=== PATIENT | female | born 1960 | race Caucasian/White ===

== ENCOUNTER 2019-10-25 09:00 | Outpatient (CLI) | payer BC, SELFPAY ==
--- NOTE | ~2019-10-25 | MM_ITS ---
EXAMINATION: MM screening [facility] BI w karla HISTORY: Screening mammogram TECHNIQUE: Craniocaudal and mediolateral oblique 3-D tomosynthesis images were obtained and synthetic 2-D images were generated. CAD analysis was submitted and interpreted. COMPARISON: 01/31/2017, 03/13/2015, 02/25/2014 BREAST PARENCHYMAL COMPOSITION: The breasts are heterogeneously dense, which may obscure small masses . FINDINGS: There is no evidence of suspicious mass, calcification, or architectural distortion to sugg est malignancy in either breast. There has been no suspicious interval change. IMPRESSION: 1. No mammographic evidence of malignancy. 2. Recommend routine screening mammography in one year. BI-RADS Category 1: Negative Reviewed, dictated and finalized at location A.
== END 2019-10-25 09:01 | disposition home or self-care (01) ==
LOC: ANHIMG 09:06
PROVIDERS: PCP Student in an Organized Health Care Education/Training Program; Visit Provider Student in an Organized Health Care Education/Training Program
DX: Z12.31 Encounter for screening mammogram for malignant neoplasm of breast (principal)
CPT/HCPCS: 77063; 77067

== ENCOUNTER 2020-08-29 11:32 | Emergency (ER) | payer BC, SELFPAY ==
[2020-08-29 11:40] VITALS: BP 116/58; PULSE 55; RESP 16; TEMP 36.6; O2SAT 100
--- NOTE | 2020-08-29 12:38 | ED.URI ---
HPI - URI/Sore Throat General Chief Complaint: Upper Respiratory Infection Stated Complaint: sinus infection Time Seen by Provider: 08/29/20 12:05 Source: patient, RN notes reviewed and old records reviewed Mode of arrival: ambulatory Limitations: no limitations History of Present Illness HPI Narrative: 59 year old female presents to [facility] care with complaints of sinus congestion, sinus pressure to face, frontal headache, sinus drainage of yellow to green with blood tinged mucous, and cough. Patient states that she has taken Advil cold and sinus, Zyrtec, NyQuil and Neti pot with no improvement in her symptoms. 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 Patient denies any shortness of breath, no sore throat or ear pain. Patient states that her cough is non-productive at this time. Patient reports that she has had her COVID immunizations. MD elicited complaint: cough, rhinorrhea, nasal congestion and sinus pain Pertinent past history: sinusitis Onset (ago): day(s) (4) Consistency: progressively worsening Severity: similar to previous episodes Pain scale (0-10): 7 Description of mucous: yellow, green and bloody Able to tolerate fluids by mouth: Yes Relieving factors: nothing Associated symptoms: headache, rhinorrhea, nasal congestion and cough Treatments prior to arrival: cold medicine and other (Nyquil, zyrtec) Related Data Allergies Allergy/AdvReac Type Severity Reaction Status Date / Time Sulfa (Sulfonamide Allergy Unknown yeast/bladder Verified 03/24/19 09:37 Antibiotics) infections Quinolones Allergy Rash Verified 03/24/19 09:37 Review of Systems Review of Systems: Narrative: CONSTITUTIONAL: Denies fever, chills, or sweats. EYES: Denies visual changes, redness, or discharge. ENT: Positive for rhinorrhea, congestion,no sore throat, or otalgia. CARDIOVASCULAR: Denies chest pain, palpitations, or edema. RESPIRATORY: Positive for cough no dyspnea. GASTROINTESTINAL: Denies abdominal pain, nausea, vomiting, or diarrhea. GENITOURINARY: Denies dysuria or hematuria. SKIN: Denies rash or itching. MUSCULOSKELETAL: Denies back pain, joint pain, or myalgia. NEUROLOGIC: Positive for frontal headache,no numbness, or weakness. PSYCHIATRIC: Denies anxiety or depression. All systems reviewed & are unremarkable except as noted in HPI and below PMFSH Past Medical History Medical History (Updated 09/03/20 @ 12:56 by Deyanira Corea NP) Fracture of right hand Mek toxicity Sinusitis Surgical History Surgical History (Updated 09/03/20 @ 12:56 by Deyanira Corea NP) History of hysterectomy Hx of appendectomy Family History Family History (Updated 09/03/20 @ 12:58 by Deyanira Corea NP) Mother Hypertension Grandparent Diabetes mellitus Heart disease Pancreatic cancer Social History Social History (Updated 09/03/20 @ 12:57 by Deyanira Corea NP) Smoking status: Never smoker Alcohol intake: current Alcohol use details: social Substance use: never Living arrangements: alone Gender identity (if verbalized by the patient): Female Comments At time of signature, agree with nursing past medical, surgical, social and family history. There is no relevant family history pertinent to the presenting complaint Exam Narrative: Exam Narrative: GENERAL: Well-appearing, well-nourished, and in no acute distress. HEAD: Normocephalic, atraumatic. EYES: PERRLA and EOMI. ENT: Nares red with turbinates swollen with rhinorrhea and blood streaks. facial pressure to cheeks and frontal headache. Mucous membranes moist.TM;s normal with dull light reflex, throat red with no exudates or lesions, no tonsil enlargement, post nasal drainage. NECK: Supple. no adenopathy CHEST: Clear to auscultation. No respiratory distress.SAO2 100% on room air HEART: Regular rate and rhythm. No murmur heard. Normal peripheral pulses. ABDOMEN: Soft, nontender, nondistended
== END 2020-08-29 12:56 | disposition home or self-care (01) ==
PROVIDERS: Emergency Provider Registered Nurse; PCP Student in an Organized Health Care Education/Training Program
DX: J32.9 Chronic sinusitis, unspecified (principal)
CPT/HCPCS: 99213; G0463

== ENCOUNTER 2021-08-02 07:55 | Outpatient (CLI) | payer BC, SELFPAY ==
--- NOTE | ~2021-08-02 | DEXA_ITS ---
Bone Density Report Name: ABDIAZIZ MEIER Age: 60 Sex: Female Ethnicity: White Date of : 1960 Indication: postmenopausal; screening for osteoporosis; height loss; hysterectomy; Referring Provider: MARKOS, MARIBEL Study: Bone densitometry was performed. Exam Date: August 02, 2021 Accession number: [id number] Bone Density: Region BMD T-score Z-score Classification AP Spine(L1-L4) 0.840 -1.9 -0.6 Osteopenia Femoral Neck (Left) 0.688 -1.4 -0.2 Osteopenia Total Hip (Left) 0.782 -1.3 -0.4 Osteopenia Femoral Neck (Right) 0.644 -1.8 -0.6 Osteopenia Total Hip (Right) 0.808 -1.1 -0.2 Osteopenia Total Hip Mean 0.795 -1.2 -0.3 Osteopenia World Health Organization criteria for BMD impression classify patients as: Normal (T-score at or above -1.0), Osteopenia (T-score between -1.0 and -2.5), or Osteoporosis (T-score at or below -2.5). 10-year Fracture Risk(1): Major Osteoporotic Fracture 8.3% Hip Fracture 0.9% Reported Risk Factors: [place] (), Neck BMD=0.644, BMI=23.5 (1) FRAX(R) Version 3.08. Fracture probability calculated for an untreated patient. Fracture probability may be lower if the patient has received treatment. Clinical Information Provided by Patient: Has used the following medications: Vitamin D, Calcium Has the following medical conditions: Hysterectomy Patient maximum height was 72 Menopause Age: 39 Drinks caffeinated beverages Onset of menses at age 15 Number of children 0 Impression: The patient has low bone mass, based on the Total Spine T-score. The patient has an estimated ten-year risk of hip fracture of 0.9% and an estimated ten-year risk of major fracture of 8.3%, based on the WHO FRAX algorithm. Discussion: BONE DENSITY IS LOW AT ONE OR MORE SKELETAL SITES. This patient's lowest T-score is low at one or more skeletal sites. It meets the World Health Organization's (WHO) criteria for ?low bone mass? (T-score between -1.0 and -2.5). The patient's 10-year risk of fracture as calculated by FRAX is less than the threshold where pharmacological therapy is recommended by the National Osteoporosis Foundation (NOF). However, all treatment decisions require clinical judgment and consideration of individual patient factors, including patient preferences, comorbidities, previous drug use, risk factors not captured in the FRAX model (e.g., frailty, falls, vitamin D deficiency, increased bone turnover, interval significant decline in bone density) and possible under or overestimation of fracture risk by FRAX. The patient should follow a healthful lifestyle (good nutrition with adequate calcium and vitamin D, and appropriate weight-bearing exercise). Follow-Up: Consider repeating this study in 2 to 3 years to reassess this patient's status, or sooner if there is s
== END 2021-08-02 07:56 | disposition home or self-care (01) ==
PROVIDERS: PCP Student in an Organized Health Care Education/Training Program; Visit Provider Student in an Organized Health Care Education/Training Program
DX: Z78.0 Asymptomatic menopausal state (principal); M85.88 Other specified disorders of bone density and structure, other site; M85.852 Other specified disorders of bone density and structure, left thigh; M85.851 Other specified disorders of bone density and structure, right thigh
CPT/HCPCS: 77080

== ENCOUNTER 2021-09-09 07:54 | Outpatient (CLI) | payer BC, SELFPAY ==
--- NOTE | ~2021-09-09 | MM_ITS ---
EXAMINATION: MM screening [facility] BI w karla HISTORY: Screening mammogram TECHNIQUE: Craniocaudal and mediolateral oblique 3-D tomosynthesis images were obtained and synthetic 2-D images were generated. CAD analysis was submitted and interpreted. COMPARISON: 10/25/2019, 01/31/2017 BREAST PARENCHYMAL COMPOSITION: The breasts are heterogeneously dense, which may obscure small masses . FINDINGS: RIGHT BREAST: There is no suspicious mass, calcification, or architectural distortion to suggest patricia gnancy. There has been no significant interval change. LEFT BREAST: An asymmetry is present in the middle third of inner breast 6 cm from the nipple on the craniocaudal view. IMPRESSION: 1. Left breast asymmetry on the craniocaudal view. 2. Additional mammographic views and possible breast ultrasound are recommended. BI-RADS Category 0: Incomplete: Needs additional imaging evaluation. Reviewed, dictated and finalized at location A. IMPRESSION: 1. Left breast asymmetry on the craniocaudal view. 2. Additional mammographic views and possible breast ultrasound are recommended . BI-RADS Category 0: Incomplete: Needs additional imaging evaluation.
== END 2021-09-09 07:55 | disposition home or self-care (01) ==
PROVIDERS: PCP Student in an Organized Health Care Education/Training Program; Visit Provider Student in an Organized Health Care Education/Training Program
DX: Z12.31 Encounter for screening mammogram for malignant neoplasm of breast (principal); R92.8 Other abnormal and inconclusive findings on diagnostic imaging of breast
CPT/HCPCS: 77063; 77067

== ENCOUNTER 2021-09-28 12:05 | Outpatient (CLI) | payer BC, SELFPAY ==
--- NOTE | ~2021-09-28 | MMUS_ITS ---
EXAMINATION: MM diagnostic [facility] LT w karla, US breast LT limited HISTORY: Left breast asymmetry TECHNIQUE: Additional 3-D tomosynthesis images of the left breast were performed and synthetic 2-D im ages were generated. CAD analysis was submitted and interpreted. High resolution Limited left breast ultrasound was performed. COMPARISON: Comparison to multiple prior studies sequentially, with oldest reviewed study dated 09/2012. BREAST PARENCHYMAL COMPOSITION: The breasts are heterogenously dense, which may obscure small masses FINDINGS: MAMMOGRAPHIC FINDINGS: There are no suspicious masses, calcifications or architectural distortion in the left breast to sugg est malignancy. ULTRASOUND: Limited left breast ultrasound: Normal heterogeneous echotexture without focal mass. IMPRESSION: 1. No evidence for malignancy in the left breast. 2. Routine yearly screening mammogram and regular clinical breast examination are recommended. BI-RADS Category 1: Negative Reviewed, dictated and finalized at location A. IMPRESSION: 1. No evidence for malignancy in the left breast. 2. Routine yearly screening mammogram and regular clinical breast examination a re recommended. BI-RADS Category 1: Negative
== END 2021-09-28 12:06 | disposition home or self-care (01) ==
PROVIDERS: PCP Student in an Organized Health Care Education/Training Program; Visit Provider Student in an Organized Health Care Education/Training Program
DX: R92.8 Other abnormal and inconclusive findings on diagnostic imaging of breast (principal)
CPT/HCPCS: 76642; 77061; 77065; G0279

== ENCOUNTER 2022-10-07 00:52 | Day surgery (SDC) | payer BC, SELFPAY ==
[2022-09-28 10:45] VITALS: BMI 22.4
[2022-10-07 06:18] VITALS: BP 109/73; PULSE 45; RESP 16; TEMP 36.8; O2SAT 100
[2022-10-07] MEDS: LACTATED RINGERS 1,000 ML 150 ML IV CONT (06:19)
--- NOTE | 2022-10-07 07:26 | P.PNAN_ITS ---
Anes - Initial Pre Proc Eval Procedure: Operation Date: 10/07/22 07:30 Proposed Procedures p Screening Colonoscopy - Irving Maguire MD Date/Time: 10/07/22 07:26 Surgeon: Irving Maguire MD Pre Op Diagnosis: neoplasm screening Patient Data Age: 61 Gender: F Height: 1.82 m Weight: 74.6 kg Last Vital Signs Temp 98.2 F 10/07/22 06:18 Pulse 45 L 10/07/22 06:18 Resp 16 10/07/22 06:18 BP 109/73 10/07/22 06:18 Pulse Ox 100 10/07/22 06:18 O2 Del Method Room Air 10/07/22 06:18 Allergies Allergy/AdvReac Type Severity Reaction Status Date / Time levofloxacin Allergy Mild Rash Verified 10/07/22 06:17 Penicillins Allergy Mild Rash Verified 10/07/22 06:17 ciprofloxacin Allergy Unknown LIGAMENT Verified 10/07/22 06:17 PROBLEMS IN HAND AND ARMS Sulfa (Sulfonamide Allergy Unknown yeast/bladder Verified 10/07/22 06:17 Antibiotics) infections hydrocodone Allergy Redness of Verified 10/07/22 06:17 Skin Quinolones Allergy Rash Verified 10/07/22 06:17 Home Medications Medication Instructions Recorded Confirmed Type meloxicam 15 mg tablet 15 mg PO DAILY 09/28/22 10/07/22 History Patient hx anesthesia problems: none Family hx anesthesia problems: none Results Review: All pre-operative results and documents have been reviewed as part of the pre-o perative evaluation. [facility] Past Medical History Medical History (System 06/11/21 @ 09:25 by Hola Fields) Fracture of right hand Mek toxicity Sinusitis Surgical History Surgical History (System 06/11/21 @ 09:25 by Hola Fields) History of hysterectomy Hx of appendectomy Family History Family History (System 06/11/21 @ 09:25 by Hola Fields) Mother Hypertension Grandparent Diabetes mellitus Heart disease Pancreatic cancer Mother Hypertension Grandparent Family history of pancreatic cancer Father Family history of coronary artery disease Social History Social History (System 06/11/21 @ 09:25 by Hola Fields) Smoking status: Never smoker Additional smoking assessment comments: parents smoked Alcohol intake: current Alcohol use details: occasional Substance use: never Substance use type: does not use Living arrangements: with family Gender identity (if verbalized by the patient): Female Spiritual care concerns: No Anes - Eval Final PreProcedure Day of Procedure 10/07/22 07:26 Patient weight: normal Heart: regular rate and rhythm Lungs: clear to auscultation Airway: Mallampati scale class II Neurological: alert and oriented Last oral intake: >/= 8 hours ASA classification: II Emergent: no Anesthetic plan: proceed Anesthesia type and monitoring: general GIVS and standard monitoring Results Review: All pre-operative results and documents have been reviewed as part of the pre- operative evaluation. Informed Consent: The patient's anesthetic plan and its attendant risks and benefits were discussed with the patient/family/POA. Questions were solicited and answers provided to the satisfaction of the patient/family/POA.
--- NOTE | 2022-10-07 07:30 | PM.HPGS ---
History of Present Illness History of Present Illness Consent: Risks, benefits, and alternatives have been discussed and questions answered. Patient agrees to proceed with procedure. Chief complaint: neoplasm screening Narrative: Cecilia Burns is a 61 year old female here for screening colonoscopy, last one in 2012 Review of Systems Constitutional: Constitutional: Denies headache(s) and Denies weakness Eyes: Eyes: Denies blurry vision ENT: Reports Normal hearing present, Denies headache(s) and Denies neck pain Cardiovascular: Cardiovascular: Denies chest pain and Denies dyspnea Respiratory: Respiratory: Denies dyspnea Gastrointestinal: Gastrointestinal: Reports no additional gastrointestinal complaints Genitourinary: Genitourinary: Denies dysuria Musculoskeletal: Musculoskeletal: Denies neck pain Integumentary/Breasts: Skin/Breast: Denies dry skin Neurologic: Reports Normal hearing present, Denies headache(s) and Denies weakness Psychiatric: Psychiatric: Denies anxiety Endocrine: Endocrine: Denies change in body appearance Hematologic/Lymphatic: Hematologic/Lymphatic: Denies easy bleeding Allergic/Immunologic: Allergic/Immunologic: Denies urticaria PMFSH Past Medical History Medical History (Updated 10/07/22 @ 07:31 by Irving Maguire MD) Colon cancer screening Fracture of right hand Mek toxicity Sinusitis Surgical History Surgical History (System 06/11/21 @ 09:25 by Hola Fields) History of hysterectomy Hx of appendectomy Family History Family History (System 06/11/21 @ 09:25 by Hola Fields) Mother Hypertension Grandparent Diabetes mellitus Heart disease Pancreatic cancer Mother Hypertension Grandparent Family history of pancreatic cancer Father Family history of coronary artery disease Social History Social History (System 06/11/21 @ 09:25 by Hola Fields) Smoking status: Never smoker Additional smoking assessment comments: parents smoked Alcohol intake: current Alcohol use details: occasional Substance use: never Substance use type: does not use Living arrangements: with family Gender identity (if verbalized by the patient): Female Spiritual care concerns: No Meds Home Medications and Allergies Home Medications Medication Instructions Recorded Confirmed Type meloxicam 15 mg tablet 15 mg PO DAILY 09/28/22 10/07/22 History Allergies Allergy/AdvReac Type Severity Reaction Status Date / Time levofloxacin Allergy Mild Rash Verified 10/07/22 06:17 Penicillins Allergy Mild Rash Verified 10/07/22 06:17 ciprofloxacin Allergy Unknown LIGAMENT Verified 10/07/22 06:17 PROBLEMS IN HAND AND ARMS Sulfa (Sulfonamide Allergy Unknown yeast/bladder Verified 10/07/22 06:17 Antibiotics) infections hydrocodone Allergy Redness of Verified 10/07/22 06:17 Skin Quinolones Allergy Rash Verified 10/07/22 06:17 Vital Signs Vital Signs - 24 hr 10/07/22 06:18 Temperature 98.2 F Pulse Rate 45 L Respiratory Rate 16 Blood Pressure 109/73 Pulse Oximetry 100 Oxygen Delivery Room Air Exam Const: General: comfortable and no acute distress HENMT: Face/Nose/Sinus: Normal nares present Eyes: General: appearance normal, both eyes and all related structures Neck: Neck: no JVD Resp: Auscultation: clear to auscultation bilaterally Cardio: Rate: regular rate Rhythm: regular rhythm GI: Inspection: non-distended GI Palp: Yes Soft to palpation Skin: General skin exam: normal color Neuro: General: gait normal Speech: normal speech Extrem: General: normal to inspection Psych: Mental Status: mental status grossly normal Assessment and Plan Assessment and plan (1) Colon cancer screening: Code(s): Z12.11 - Encounter for screening for malignant neoplasm of colon Status: Acute Assessment and Plan: colonoscopy
[2022-10-07 07:48] VITALS: BP 111/64; PULSE 62; RESP 28; O2SAT 98
[2022-10-07 07:58] VITALS: BP 109/66; PULSE 56; RESP 16; O2SAT 100
[2022-10-07 08:08] VITALS: BP 111/68; PULSE 58; RESP 18; O2SAT 100
== END 2022-10-07 08:13 | disposition home or self-care (01) ==
PROVIDERS: PCP Student in an Organized Health Care Education/Training Program; Visit Provider Internal Medicine Gastroenterology
PROC: 0DJD8ZZ Inspection of Lower Intestinal Tract, Via Natural or Artificial Opening Endoscopic (ICD-10-PCS; CPT 45378; principal; 2022-10-07 07:30)
DX: Z12.11 Encounter for screening for malignant neoplasm of colon (principal); K57.30 Diverticulosis of large intestine without perforation or abscess without bleeding; K64.8 Other hemorrhoids
CPT/HCPCS: 45378; J2704; J7120

== ENCOUNTER → 2022-11-11 13:00 | Outpatient (CLI) | payer BC, SELFPAY ==
--- NOTE | ~2022-11-11 | MM_ITS ---
EXAMINATION: MM screening [facility] BI w karla HISTORY: Screening mammogram TECHNIQUE: Craniocaudal and mediolateral oblique 3-D tomosynthesis images were obtained and synthetic 2-D images were generated. Rotated left craniocaudal view. CAD analysis was submitted and interprete d. COMPARISON: 09/28/2021 diagnostic left mammogram and limited left breast ultrasound, reported negative 09/09/2021, 10/25/2019 bilateral screening mammogram examinations BREAST PARENCHYMAL COMPOSITION: The breasts are heterogeneously dense, which may obscure small masses . FINDINGS: There is no evidence of suspicious mass, calcification, or architectural distortion to sugg est malignancy in either breast. There has been no suspicious interval change. IMPRESSION: 1. No mammographic evidence of malignancy. 2. Recommend routine screening mammography in one year. BI-RADS Category 1: Negative Reviewed, dictated and finalized at location A.
== END ==
PROVIDERS: PCP Student in an Organized Health Care Education/Training Program; Visit Provider Student in an Organized Health Care Education/Training Program
DX: Z12.31 Encounter for screening mammogram for malignant neoplasm of breast (principal)
CPT/HCPCS: 77063; 77067

== ENCOUNTER 2023-08-17 09:44 | Outpatient (CLI) | payer OTHER, SELFPAY ==
--- NOTE | ~2023-08-17 | MR_ITS ---
EXAMINATION: MR lumbar spine wo con DATE: 08/17/2023 10:21 INDICATION: Lumbar radiculopathy. TECHNIQUE: Magnetic resonance imaging (MRI) of the lumbar spine was performed without intravenous con trast. Sequences included sagittal T2-weighted FSE, sagittal T2-weighted FS FSE, sagittal T1-weighted FSE, and axial T2-weighted FSE. COMPARISON: None FINDINGS: There is 10 degrees dextroscoliosis of lumbar spine. There is mild chronic anterior wedging of T12 and L1 vertebral bodies. There is mildly decreased disc height at T11-T12 and T12-L1, moderat gladys decreased disc height at L1-L2, and mildly decreased disc height from L2 to L3 through L4-L5. The distal spinal cord signal intensity is normal. The conus medullaris is at L1-L2. The following disc levels are specifically discussed: L1-L2: The disc is bulging and has an annular fissure. There is mild bilateral facet joint osteoarthr itis. There is mild bilateral neural foraminal stenosis. There is mild central canal stenosis. L2-L3: The disc is bulging and has an annular fissure. There is severe right and mild left facet join t osteoarthritis. There is mild bilateral neural foraminal stenosis. There is mild central canal sten osis. L3-L4: The disc is bulging. There is severe bilateral facet joint osteoarthritis. There is mild bilat eral neural foraminal stenosis. There is mild central canal stenosis. L4-L5: The disc is bulging and has an annular fissure. There is severe bilateral facet joint osteoart hritis. There is mild bilateral neural foraminal stenosis. There is mild central canal stenosis. L5-S1: The disc is bulging and has an annular fissure. There is severe right and moderate left facet joint osteoarthritis. There is mild bilateral neural foraminal stenosis. There is mild central canal stenosis. IMPRESSION: 1. Moderate lumbar spondylosis. 2. Lumbar dextroscoliosis. Reviewed, dictated and finalized at location A.
== END 2023-08-17 09:45 ==
LOC: GOSHIMG 09:45
PROVIDERS: PCP Student in an Organized Health Care Education/Training Program; Visit Provider Nurse Practitioner Family
DX: M47.26 Other spondylosis with radiculopathy, lumbar region (principal)
CPT/HCPCS: 72148

== ENCOUNTER 2023-12-06 14:05 | Outpatient (CLI) | payer OTHER, SELFPAY | END 2023-12-06 14:06 | disposition home or self-care (01) | PROVIDERS: PCP Student in an Organized Health Care Education/Training Program | DX: H93.13 Tinnitus, bilateral (principal); Z98.890 Other specified postprocedural states | CPT/HCPCS: 92557; 92567 ==

== ENCOUNTER 2024-06-14 15:21 | Outpatient (CLI) | payer OTHER, SELFPAY ==
--- NOTE | ~2024-06-14 | MM_ITS ---
EXAMINATION: MM screening [facility]lee BI w karla HISTORY: Screening TECHNIQUE: Craniocaudal and mediolateral oblique 3-D tomosynthesis images were obtained and synthetic 2-D images were generated. CAD analysis was submitted and interpreted. COMPARISON: Comparison to multiple prior studies sequentially, with oldest reviewed study dated 03/13. BREAST PARENCHYMAL COMPOSITION: Dense: The breasts are heterogeneously dense, which may obscure small masses FINDINGS: There is no evidence of suspicious mass, calcification, or architectural distortion to sugg est malignancy in either breast. There has been no suspicious interval change. IMPRESSION: 1. No mammographic evidence of malignancy. 2. Recommend routine screening mammography in one year. BI-RADS Category 1: Negative Reviewed, dictated and finalized at location B.
--- OUTSIDE RECORDS SUMMARY | 2024-06-14 15:35 | XMS_ITS | Clinical Summary ---
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 Name Role Phone Miguelangel Jones Primary Care Provide r Aaron Kong MD Unavailable [phone] Allergies Active Allergy Reactions Criticality Noted Date Comments Amoxicillin Other (See comments) Low Ciprofloxacin Joint pain Low Hydrocodone Headache,Nausea And Vomiting,Other (See comments) Medium 12/30/2021 Constipation Levofloxacin Joint pain Low Sulfa (Sulfonamide Antibiotics) Medications meloxicam (MOBIC) 15 mg tablet Take 1 tablet (15 mg total) by mouth daily 06/13/2021 Active cetirizine 10 mg capsule daily Active glucosamine-cho ndroitin (glucosamine-ch ondroitin) 500-400 mg capsule Take 3 capsules by mouth daily Active magnesium oxide (MAG-OX) 250 mg (150.8 mg elemental) tablet Take 2 tablets (500 mg total) by mouth daily Active cholecalciferol (VITAMIN D-3) 2000 unit tablet Take 2 tablets (4,000 Units total) by mouth daily Active CALCIUM ORAL Take 1,200 mg by mouth daily 07/16/2002 Active UNABLE TO FIND Med Name: hemp oil complex Active cranberry conc-ascorbic acid 4,200-20 mg capsule Take 2 capsules by mouth daily Active ginkgo biloba 40 mg tablet Take 120 mg by mouth Active ascorbic acid (VITAMIN C) 100 mg tablet Take 1 tablet (100 mg total) by mouth daily Active diphenoxylate-a tropine (LOMOTIL) 2.5-0.025 mg per tablet 4 (four) times a day 01/25/2018 Active fluticasone propionate (FLONASE) 50 mcg/actuation nasal spray U 2 SPRAYS IEN D 03/24/2019 Active estradioL (VIVELLE-DOT) 0.05 mg/[address] 1 PATCH ON THE SKIN 2 TIMES A WEEK. 8 patch 3 03/01/2024 Active Active Problems Problem Noted Date Diagnosed Date Elevated rheumatoid factor 07/02/2021 Overview (07/15/2021): Labs (07/02/21): RF (22), CCP <16, 14.3.3 eta <0.2, CRP 0.2, ESR 6 XR 07/05/21: R hand: marked arthritic change 1st CMC joint. 3 surgical fixating screw right 2nd distal MC shaft. US right hand/wrist (07/12/21): Grade 1 effusion and grade 2 power doppler in the wrist. Grade 1 effusion and grade 1 power doppler in the radial/scaphoid joint. Grade 1 effusion in the 3rd PIP joint. Moderate synovial thickening in the wrist and 2nd and 3rd PIP joints. Suspected erosion in the 2nd metacarpal head without synovial thickening, effusion, or power doppler. Cortical irregularity seen in the 5th metacarpal head without obvious erosion and without synovial thickening, effusion, or power doppler. Assessment & Plan (07/16/2021 11:30 AM CDT): 60-year-old female with PMHx of anxiety, blood clot, and sicca c/o +RF (24) w/ negative CCP and CELSO and chronic joint pain and deformity of the b/l CMC joints (L>R). 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 Rheumatological work up revealed low positive RF (22) but negative CCP ab and 14.3.3 eta protein. CRP and ESR are also WNL. XR of the R hand revealed marked arthritis of the 1st CMC joint. US of the R hand/wrist did not reveal any evidence to suggest active inflammation from RA at this time. Changes in the 2nd metacarpal head are likely due to hx of surgical trauma which was noted on the R hand XR. There continues to be no obvious synovitis or tenderness noted on peripheral exam and she denies any AM stiffness to suggest an inflammatory arthritis. Based on imaging and hx, symptoms appear to be due to osteoarthritis. There is a low positive RF however US findings are unremarkable for disease activity and clinically she has no evidence of RA. Discussed that RF is not a marker of disease activity and should not be repeated routinely unless she were to notice symptoms concerning for an inflammatory arthritis such as localized joint swelling or stiffness. Continue to follow with ortho hand who has started bracing. Okay to continue meloxicam 15mg daily per pcp and CBD topical. Using voltaren gel otc with minimal relief yet so will give samples of Pennsaid topical which can be used BID to affected joints. If she finds this helps, Pennsaid is more affordable when ordered and mailed from [employer] in [place], [place]. Will see patient as needed for any new or worsening symptoms that would be concerning for an inflammatory arthritis. Assessment & Plan (07/02/2021 1:30 PM CDT): 60-year-old female with PMHx of anxiety, blood clot, and sicca c/o +RF (24) w/ negative CCP and CELSO and chronic joint pain and deformity of the b/l CMC joints (L>R). 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 No obvious synovitis or tenderness noted on peripheral exam and she denies any AM stiffness to suggest an inflammatory arthritis. Symptoms and exam are suspicious for osteoarthritis. Due to elevated RF, will order appropriate serologies, radiographs, and a left hand/wrist US to further evaluate. Continue meloxicam 15mg daily per pcp and CBD topical. Pt seeing hand ortho in 1.5 weeks so if rheumatological work up is unremarkable, would recommend keeping ortho consult. Follow up in 2 weeks. Sooner if needed. Seen with Dr. Kong. Vitamin D deficiency 04/14/2021 Osteopenia of left hand 04/14/2021 Anxiety 05/07/2018 Allergic rhinitis due to animal hair and dander 02/06/2017 Allergic rhinitis due to pollen 02/06/2017 Hay fever 02/06/2017 Allergic rhinitis due to mold 02/06/2017 History of DVT (deep vein thrombosis) 02/23/2016 Overview (06/15/2023): as a child > 20 years ago, no treatment rendered Low back pain 10/28/2015 Immunizations Immunization Administration Dates Next Due Influenza, Quadrivalent, Spl it, Preservative Free, Intramuscular 02/13/2023,04/12/2021 Influenza, Unspecified 01/15/2022 Tdap 06/28/2019 Surgical History Surgery Date Site/Laterality Comments HAND SURGERY 02/27/1995 - 02/27/1996 Right HYSTERECTOMY 02/27/1999 - 02/27/2000 KNEE SURGERY 02/27/2003 - 02/27/2004 Right arthroscopic clean out BREAST BIOPSY 02/27/1993 - 02/26/1994 Family History Medical History Relation Name Comments Breast cancer Neg Hx Ovarian cancer Neg Hx Social History Tobacco Use Types Packs/Day Years Used Date Smoking Tobacco: Never Comments No Sex and Gender Information Value Date Recorded Sex Assigned at Not on file 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 Gender Identity Not on file Sexual Orientation Not on file Obstetrics History Para Term AB IAB SAB Ectopic Multiple Livin g Live Births 0 0 0 0 0 0 0 0 0 0 0 Last Filed Vital Signs Vital Sign Reading Time Taken Comments Blood Pressure 122/64 06/15/2023 9:22 AM CDT Pulse 63 07/16/2021 10:36 AM CDT Temperature - - Respiratory Rate - - Oxygen Saturation 97% 07/16/2021 10:36 AM CDT Inhaled Oxygen Concentration - - Weight 78 kg (172 lb) 06/15/2023 9:22 AM CDT Height 182.9 cm (6') 06/15/2023 9:22 AM CDT Body Mass Index 23.33 06/15/2023 9:22 AM CDT Plan of Treatment Health Maintenance Due Date Last Done Comments Breast Cancer Screening-Mammogram 1962 Colon Cancer Screening-Colonoscopy 1962 Depression Screening 1962 Hepatitis C Screening 1962 Hepatitis B Screening 1980 Regular Well Visit/Exam 18-64 1980 Zoster Vaccine (1 of 2) 2012 Covid-19 Vaccine (2023-2 5 season) 2023 02/23/2021, 05/08/2020, 04/16/2020 Influenza Vaccine (#1) 2023 3, 01/15/2022, 04/12/2021 DTaP/Tdap/Td Vaccine (2 - Td or Tdap) 06/27/2029 06/28/2019 Pneumococcal vaccine <65 Aged Out No longer eligible based on patient's age to complete this topic Insurance [facility] [id number] Care Teams Electric Golf Cart Repairer Relationship Specialty Start Date End Date Miguelangel Jones DO [address] [place] [address] PCP - General Family Medicine 06/08/21 Aaron Kong MD [address] [place] [address] Consulting Physician Rheumatology 06/10/21
--- OUTSIDE RECORDS SUMMARY | 2024-06-14 15:35 | XMS_ITS | Encounter Summary ---
Author Organization [facility] Care Team Providers Care Linseed Oil Boiler Name Role Phone Mignon Alexander MD Primary Care Provider Miguelangel Jones DO Primary Care Provide r Isaias MCLAUGHLIN MD, Noel Garrido Unavailable Aaron Kong MD Unavailable [phone] Encounter Details Date Type Department Care Team (Latest Contact Info) Description 02/23/2016 Orders Only [facility] Provider, MD Win [address] [place] [address] Social History Tobacco Use Types Packs/Day Years Used Date Smoking Tobacco: Never Assessed Comments Unknown Sex and Gender Information Value Date Recorded Sex Assigned at Not on file Legal Sex Female 12:30 AM GENERAL DOC Gender Identity Not on file Sexual Orientation Not on file documented as of this encounter Plan of Treatment Not on file documented as of this encounter Procedures Procedure Name Priority Date/Time Associated Diagnosis Comments CARDIOLOGY REPORT 02/24/2016 12: 00 AM GENERAL DOC documented in this encounter Results * CARDIOLOGY REPORT (02/24/2016 12:00 AM GENERAL DOC) Anatomical Region Laterality Modality Other Narrative 02/24/2016 12:00 AM GENERAL DOC Ordered by an unspecified provider. Historical Provider [facility] SMITHA CORCORAN Final Result documented in this encounter Visit Diagnoses Not on filedocumented in this encounter Care Teams Linseed Oil Boiler Relationship Specialty Start Date End Date Mignon Alexander MD PCP - General 02/06/17 06/07/21 Miguelangel Jones DO [facility] [place] [address] PCP - General Family Medicine 06/08/21 Neol Esparza III, MD [address] [place] [address] Consulting Physician Rheumatology 06/08/21 06/09/21 Aaron Kong MD [address] [place] [address] Consulting Physician Rheumatology 06/10/21 documented as of this encounter
--- OUTSIDE RECORDS SUMMARY | 2024-06-14 15:35 | XMS_ITS | Encounter Summary ---
Author Organization [facility] Address [facility] [place] [address] Care Team Providers Care Territory Development Manager Name Role Phone Miguelangel Jones DO Primary Care Provider + Encounter Details Date Type Department Care Team (Late st Contact Info) Description 11/18/2022 MyChart Message Enc [facility] Family & Internal [address] [address] iMguelangel Jones DO [address] [place] [address] Mammogram Results Social History Tobacco Use Types Packs/Day Years Used Date Smoking Tobacco: Never Passive Smoke Exposure: Never Smokeless Tobacco: Never Comments:Both parents smoked , Never Smoked Alcohol Use Standard Drinks/Week Comments Yes 1.7 (1 standard drink = 0.6 oz p ure alcohol) Rarely PHQ-2 Answer Date Recorded Patient Health Questionnaire-2 Score 0 07/05/2022 Comments No Sex and Gender Information Value Date Recorded Sex Assigned at Female 05/24/2024 7:35 AM CDT Legal Sex Female 9:37 PM CDT Gender Identity Female 04/09/2021 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 Sexual Orientation Not on file 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 Not on file documented as of this encounter Plan of Treatment Upcoming Encounters Date Type Department Care Team (Late st Contact Info) Description 07/15/2024 2:00 PM CDT Allied Health/Nurse Visit [facility] Family & Internal [address] [place] [address] Miguelangel Jones DO [address] [place] [address] 09/05/2024 7:20 AM CDT Laboratory Only [facility] Family & Internal Medicine - [address] [address] Miguelangel Jones DO [address] [place] [address] documented as of this encounter Visit Diagnoses Not on filedocumented in this encounter Additional Health Concerns Assessment Noted Time PHQ-9 Depression Total Score: 0 05/29/19 22 8:05 AM CDT documented as of this encounter Care Teams Territory Development Manager Relationship Specialty Start Date End Date Miguelangel Jones DO [address] [place] [address] PCP - General FAMILY PRACTICE 02/28/18 documented as of this encounter
--- OUTSIDE RECORDS SUMMARY | 2024-06-14 15:35 | XMS_ITS | Continuity of Care Document ---
Author Organization [facility] Address [address] [facility] [address] [place] [address] Phone Care Team Providers Care Library Information Technician Name Role Phone Yan Yin Unavailable Unavailable Procedures Procedure Date Therapeutic Activities Neuromuscular Re-Ed Therapeutic Exercise Therapeutic Activities Neuromuscular Re-Ed Therapeutic Exercise Doc neg elder mal no plan PT Evaluation Moderate Complexity Therapeutic Activities Therapeutic Exercise Manual Therapy Therapeutic Exercise Therapeutic Activities Neuromuscular Re-Ed Hot or Cold Pack Therapeutic Exercise Neuromuscular Re-Ed Manual Therapy Hot or Cold Pack Therapeutic Exercise Neuromuscular Re-Ed Manual Therapy Hot or Cold Pack PT Evaluation Moderate Complexity Therapeutic Exercise Neuromuscular Re-Ed Progress Note THERAPEUTIC EXERCISES NEUROMUSCULAR RE-ED FUNC ACTIVITY HOT/COLD PACK THERAPEUTIC EXERCISES NEUROMUSCULAR RE-ED MANUAL THERAPY HOT/COLD PACK THERAPEUTIC EXERCISES MANUAL THERAPY HOT/COLD PACK THERAPEUTIC EXERCISES NEUROMUSCULAR RE-ED MANUAL THERAPY FUNC ACTIVITY HOT/COLD PACK THERAPEUTIC EXERCISES MANUAL THERAPY Mini Bands THERAPEUTIC EXERCISES NEUROMUSCULAR RE-ED MANUAL THERAPY FUNC ACTIVITY THERAPEUTIC EXERCISES NEUROMUSCULAR RE-ED FUNC ACTIVITY THERAPEUTIC EXERCISES NEUROMUSCULAR RE-ED FUNC ACTIVITY HOT/COLD PACK THERAPEUTIC EXERCISES NEUROMUSCULAR RE-ED MANUAL THERAPY FUNC ACTIVITY HOT/COLD PACK ELECTRIC STIMULATION UNATT THERAPEUTIC EXERCISES NEUROMUSCULAR RE-ED MANUAL THERAPY FUNC ACTIVITY HOT/COLD PACK ELECTRIC STIMULATION UNATT THERAPEUTIC EXERCISES NEUROMUSCULAR RE-ED MANUAL THERAPY FUNC ACTIVITY HOT/COLD PACK ELECTRIC STIMULATION UNATT PT EVALUATION THERAPEUTIC EXERCISES MANUAL THERAPY HOT/COLD PACK ELECTRIC STIMULATION UNATT Advance Directives Directive Yes / No Effective Date File Name No Information Encounters Encounter Description Practice Location Reason(s) For Visit Diagnoses Date Provider Providers [facility], [place], [place], [id number], [place] tel:[phone] [place] No Information Ninfa Heredia. [address] [facility], [address], [place], [place], [facility], [place]. tel: [phone] [facility] [place], [place], [id number], tel:[phone] [place] No Information 0 4 Muehl Yan. [address] [place] [address], [facility], . tel:[phone] Referring Provider: Miguelangel Jones, [address] [place] [address], [address]. tel:[phone] [place] [address], [id number], tel:[phone] [place] No Information Jan-2 3 Muehl Yan. [address] [place] [address], [facility], [place]. tel:[phone] Referring Provider: Miguelangel Jones, [address] [place] [address], [id number]. tel:[phone] [place] [address], [id number], [place] tel:[phone] [place] No Information Jan-2 3 Muehl Yan. [address] [place] [address], [facility], [place]. tel:[phone] Referring Provider: Miguelangel Jones, [address] [place] [address], [address]. tel:[phone], [id number], tel:[phone] [place] Pain in left shoulderMuscle weakness (generalized)St iffness of left shoulder, not elsewhere classified Apr-0 1-201 9 Muehl Yan. [address] [place] [address], [id number], [place]. tel:[phone] Referring Provider: Miguelangel Jones, [address] [place] [address], [address]. tel:[phone], [id number], [place] tel:[phone] [place] Pain in left shoulderMuscle weakness (generalized)St iffness of left shoulder, not elsewhere classified 9 Muehl Yan. [address] [place] [address], [facility], [place]. tel:[phone] Referring Provider: Miguelangel Jones, [address] [place] [address], [facility]. tel:[phone], [id number], [place] tel:[phone] [place] Pain in left shoulderMuscle weakness (generalized)St iffness of left shoulder, not elsewhere classified Muehl Yan. [address] [place] [address], [facility], [place]. tel:[phone] Referring Provider: Miguelangel Jones, [address] [place] [address], [facility]. tel:[phone] [place] [address], [id number], [place] tel:[phone] [place] Pain in left shoulderMuscle weakness (generalized)St iffness of left shoulder, not elsewhere classified 9 Muehl Yan. [address] [place] [address], [facility], [place]. tel:[phone] Referring Provider: Miguelangel Jones, [address] [place] [address], [facility]. tel:[phone], [id number], [place] tel:[phone] [place] No Information 6 Muehl Yan. [address] [place] [address], [facility], [place]. tel:[phone] Referring Provider: Janet Rodriguez , [address] [place], [address]. tel:[phone] [address], [place], [id number], tel:[phone] [place] No Information 6 Muehl Yan. [address] [place] [address], [address], [facility], . tel: [phone] Referring Provider: Janet Rodriguez , [address] [place], [place], [facility]. tel:[phone] [address], [id number], tel:[phone] [place] No Information 6 Muehl Yan. [address] [place] [address], [address], [facility], . tel: [phone] Referring Provider: Janet Rodriguez , [address] [place], [place], [facility]. tel:[phone] [place] [address], [id number], tel:[phone] [place] No Information 6 Muehl Yan. [address] [place] [address], [address], [facility], . tel: [phone] Referring Provider: Janet Rodriguez , [address] [place], [address]. tel:[phone], [id number], tel:[phone] [place] No Information 6 Muehl Yan. [address] [place] [address], [address], [facility], . tel:[phone] Referring Provider: Janet Rodriguez , [address] [place], [address]. tel:[phone], [id number], [place] tel:[phone] [place] No Information 6 Muehl Yan. [address] [place] [address], [facility] [address], [place], [facility], . tel: [phone] Referring Provider: Janet Rodriguez , [address] [facility], [place], [address]. tel:[phone] [place] [address], [id number], tel:[phone] [place] No Information 8 6 Muehl Yan. [address] [place] [address], [facility] [address], [place], [facility], [place]. tel: [phone] Referring Provider: Janet Rodriguez , [address] [facility], [place], [address]. tel:[phone] [place] [address], [id number], tel:[phone] [place] No Information 6 Muehl Yan. [address] [place] [address], [address], [place], [facility], [place]. tel: [phone] Referring Provider: Janet Rodriguez , [address] [facility], [place], [address]. tel:[phone] [place] [address], [id number], tel:[phone] [place] No Information 5 Muehl Yan. [address] [place] [address], [facility] [address], [place], [facility], [place]. tel: [phone] Referring Provider: Janet Rodriguez , [address] [facility], [place], [address]. tel:[phone], [id number], tel:[phone] [place] No Information Dec- 5 Muehl Yan. [address] [facility], [address], [place], [facility], . tel:[phone] Referring Provider: Janet Rodriguez , [address] [place], [place], [facility]. tel:[phone], [id number], tel:[phone] [place] Low back painSacrococcyg eal disorders, not elsewhere classifiedSegme ntal and somatic dysfunction of lumbar regionUnspecifi ed abnormalities of gait and mobility 5 Muehl Yan. [address] [facility], [address], [facility], . tel:[phone] Referring Provider: Janet Rodriguez , [address] [place], [place], [facility]. tel:[phone], [id number], tel:[phone] [place] No Information 5 Joseehl Yan. [address] [facility], [address], [facility], . tel:[phone] Referring Provider: Janet Rodriguez , [address] [place], [place], [facility]. tel:[phone] Family History Family Member Type Diagnosis Age At Onset No Information Payers Payer name Insurance type Covered republican ID Ji leonciogina(s) [employer] [id number] Social History Type Description Quantity Date Captured Comments Sex Female Smoking Status No Information Chief Complaint And Reason For Visit No Information Reason For Referral Reason For Referral No Information History Of Present Illness Encounter Date Complaint History Of Prese nt Illness No Information Functional Status Date Functional Assessmen t No Information Instructions Date Instruction Additional Infor mation No Information Assessments Type Assessment Date No Information Patient Care Teams Name Effective Dates (start - stop) Status Members No Information
--- OUTSIDE RECORDS SUMMARY | 2024-06-14 15:35 | XMS_ITS | Clinical Summary ---
Author Organization [facility] Address [address] [place] [address] Care Team Providers Care Emergency Preparedness Coordinator Name Role Phone Miguelangel Jones DO Primary Care Provider + Allergies Active Allergy Reactions Criticality Noted Date Comments Amoxicillin Other (see comment) Low Ciprofloxacin Joint Pain Low Hydrocodone Nausea and Vomiting,Headache,Other (see comment) Medium 12/30/2021 Constipation Levofloxacin Joint Pain Prednisone Rash Low 08/18/2023 Caused pt to develop red, itchy rash under eyes and on bridge of nose. Sulfa Antibiotics Other (see comment) Medications CALCIUM OR Take by mouth daily. 3 Active cranberry 500 MG Cap Take 1 capsule by mouth daily. Active fluticasone propionate 50 MCG/ACT nasal spray U 2 SPRAYS IEN D 0 Active NON FORMULARY CBD oil prn sleep, OTC Active glucosamine-ch ondroitin 500-400 MG Cap Take 1 capsule by mouth daily. Active magnesium oxide 250 MG tablet Take 1 tablet (250 mg total) by mouth daily. Active Cholecalcifero l (VITAMIN D) 50 MCG (1999 UT) Tab Take 1 tablet (50 mcg total) by mouth daily. Active Ascorbic Acid (VITAMIN C) 100 MG tablet Take 1 tablet (100 mg total) by mouth daily. Active Turmeric Curcumin 500 MG Cap Take 1,500 mg by mouth. Active Ginkgo Biloba 40 MG Tab Take 120 mg by mouth. Active Cetirizine HCl 10 MG Cap Take 10 capsules by mouth daily. Active estradiol (VIVELLE-DOT) 0.05 MG/24HR patch Place 1 patch (0.05 mg total) onto the skin twice a week. 4 Active meloxicam (MOBIC) 15 MG tabletIndicati ons:Lumbar pain TAKE 1 TABLET BY MOUTH EVERY DAY IN THE MORNING 90 tablet 5 Active predniSONE (DELTASONE) 20 MG tabletIndicati ons:Lumbar pain Take 3 tablets for three days, then take 2 tablets for three days, then take 1 tablet for three days 18 tablet 3 025 Discontinued tiZANidine (ZANAFLEX) 4 MG tabletIndicati ons:Lumbar pain TAKE 1 TABLET BY MOUTH EVERY 8 HOURS NEEDED 270 tablet 1 4 025 Discontinued meloxicam (MOBIC) 15 MG tabletIndicati ons:Lumbar pain TAKE 1 TABLET BY MOUTH EVERY DAY IN THE MORNING 90 tablet 5 025 Discontinued Active Problems Problem Noted Date Diagnosed Date Elevated rheumatoid factor 07/02/2021 Overview (07/05/2022): Labs (07/02/21): RF (22), CCP <16, 14.3.3 [...] without synovial thickening, effusion, or power doppler. Last Assessment & Plan: 60-year-old female with PMHx of anxiety, blood [...] more affordable when ordered and mailed from [employer] in [place], [place]. Will see patient as needed for any new or worsening symptoms that would be concerning for an inflammatory arthritis. Chronic pain of left wrist 04/14/2021 Vitamin D deficiency 04/14/2021 Chronic pain of left thumb 04/14/2021 Osteopenia of left hand 04/14/2021 Anxiety 05/07/2018 Allergic rhinitis due to pollen 02/06/2017 Allergic rhinitis due to mold 02/06/2017 Resolved Problems Problem Noted Date Diagnosed Date Resolved Date Hay fever 02/06/2017 07/05/2022 History of DVT (deep vein thrombosis) 02/23/2016 05/24/2024 Overview (05/24/2024): as a child > 20 years ago, no treatment rendered Encounters Date Type Department Care Team Description 06/10/2024 2:00 PM CDT Allied Health/Nurse Visit [facility] Family & Internal Medicine [address] [phone] Miguelangel Jones, DO Imm/Inj 06/10/2024 Travel 06/06/2024 Telephone [facility] Internal [address] [phone] Miguelangel Jones, DO Lab Results 05/24/2024 7:20 AM CDT Office Visit [address] [address] Miguelangel Jones, DO Physical (The patient presents for annual physical. No concerns at this time. ) 05/24/2024 - 05/24/2024 11:59 PM CDT Hospital Encounter [facility] [place] [address] Miguelangel Jones, DO Discharge Disposition: Home or Self Care (Routine Discharge) 05/24/2024 Travel 04/22/[address] [address] Miguelangel Jones, DO Information from Last 3 Months Immunizations Immunization Administration Dates Next Due Arexvy Respiratory Syncytial Virus (RSV, adjuvanted) 0.5 mL, PF 03/05/2024 Fluzone 6 Months+ Quad (0.5 mL Prefilled Syringe ) 02/13/2023,04/12/2021 Influenza (Generic) 01/04/2024 Influenza Adult (Generic) 01/15/2022 MMR (MMRII) 06/10/2024 Shingrix 03/05/2024,02/28/2023 Tdap (Historical Only-select from magnify glass) 06/28/2019 Family History Medical History Relation Comments Heart Disease Father Hypertension Father COPD Mother Heart Disease Mother Hypertension Mother Kidney Disease Mother Mental Health Mother Diabetes Paternal Grandfather Cancer Paternal Grandmother Pancreatic cancer Diabetes Paternal Uncle Relation Status Comments Father Mother Paternal Grandfather Paternal Grandmother Paternal Uncle Social History Tobacco Use Types Packs/Day Years Used Date Smoking Tobacco: Never Passive Smoke Exposure: Never Smokeless Tobacco: Never Tobacco Cessation:Counseling Given: Yes Comments:Both parents smoked, Never Smoked Alcohol Use Standard Drinks/Week Comments Yes 1.7 (1 standard drink = 0.6 oz p ure alcohol) Rarely PHQ-2 Answer Date Recorded Patient Health Questionnaire-2 Score 0 05/24/2024 Comments No Sex and Gender Information Value Date Recorded Sex Assigned at Female 05/24/2024 7:35 AM CDT Legal Sex Female 9:37 PM CDT Gender Identity Female 04/09/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 Sexual Orientation Not on file 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 Not on file Last Filed Vital Signs Vital Sign Reading Time Taken Comments Blood Pressure 96/54 05/24/2024 7:38 AM CDT Pulse 52 05/24/2024 7:38 AM CDT Temperature 36.3 C (97.3 F) 05/24/2024 7:38 AM CDT Respiratory Rate 16 05/24/2024 7:38 AM CDT Oxygen Saturation 97% 05/24/2024 7:38 AM CDT Inhaled Oxygen Concentration - - Weight 81.3 kg (179 lb 4.8 oz) 05/24/2024 7:38 A M CDT Height 180.3 cm (5' 11 ) 05/24/2024 7:38 AM CDT Body Mass Index 25.01 05/24/2024 7:38 AM CDT Plan of Treatment Upcoming Encounters Date Type Department Care Team (Late st Contact Info) Description 07/15/2024 2:00 PM CDT Allied Health/Nurse Visit [facility] Family & Internal Medicine [address] [phone] Miguelangel Jones DO [address] [place] [address] 09/05/2024 7:20 AM CDT Laboratory Only [facility] Family & Internal [address] [address] Miguelangel Jones DO [address] [place] [address] Health Maintenance Due Date Last Done Comments Pneumococcal Vaccine: 50+ Years (1 of 1 - PCV) 2012 Mammogram Screening 11/11/2024 11/11/2022, 09/28/2021, 09/09/2021, Additional history exists Annual Physical 05/24/2025 05/24/2024, 10/2022, 05/28/2021, Additional history exists DTaP, Tdap and Td Vaccines (2 - Td or Tdap) 06/27/2029 06/28/2019 Colorectal Cancer Screening Colonoscopy (10 Years) 10/07/2032 10/07/2022 Hepatitis C Completed 06/28/2019 COVID-19 Vaccine Completed 01/04/2024, , 01/15/2022, Additional history exists RSV Immunization or 60+ Years Completed 03/05/2024 Zoster Vaccines Completed 03/05/2024, 02/28/2023 PHQ-2 (Physician [place]) Completed 05/24/2024 Meningococcal B Vaccine Aged Out No l onger eligible based on patient's age to complete this topic Meningococcal Vaccine Aged Out No steven bisi eligible based on patient's age to complete this topic RSV Immunizations Under 20 Months Aged Out No longer eligible based on patient's age to complete this topic Medical Devices Implanted Type Area [employer] 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 Device Identifier Shelf Expiration Date Model / Serial / Lot Lifenet Decellularized Dermix 4 X 4cm Implanted:Qty: 1 on 12/24/2021 by Iraj Arguello MD at [facility] Tissue Left: Thumb [facility] X BODY [id number] 05/09/2024 [id number] / [id number] / [id number] Procedures Procedure Name Priority Date/Time Associated Diagnosis Comments CBC W/DIFF AUTOMATED Routine 05/24/2024 8:20 AM CDT Encounter for preventative adult health care examination Screening for lipid disorders Screening for endocrine, metabolic and immunity disorder COMPREHENSIVE METABOLIC PANEL Routine 05/24/2024 8:20 AM CDT Encounter for preventative adult health care examination Screening for lipid disorders Screening for endocrine, metabolic and immunity disorder TSH W/REFLEX Routine 05/24/2024 8:20 AM CDT Encounter for preventative adult health care examination Screening for lipid disorders Screening for endocrine, metabolic and immunity disorder LIPID PANEL Routine 05/24/2024 8:20 AM CDT Encounter for preventative adult health care examination Screening for lipid disorders Screening for endocrine, metabolic and immunity disorder VITAMIN D, 25 OH Routine 05/24/2024 8:20 AM CDT Vitamin D deficiency Encounter for preventative adult health care examination Screening for lipid disorders Screening for endocrine, metabolic and immunity disorder RUBEOLA IGG Routine 05/24/2024 8:20 AM CDT Encounter for antibody response examination RUBELLA IGG Routine 05/24/2024 8:20 AM CDT Encounter for antibody response examination MUMPS AB IGG Routine 05/24/2024 8:20 AM CDT Encounter for antibody response examination COLLECTION VENOUS BLOOD VENIPUNCTURE Routine 05/24/2024 7:50 AM CDT Encounter for preventative adult health care examination Screening for lipid disorders Screening for endocrine, metabolic and immunity disorder MAMMOGRAM GENERIC (SCAN ORDER) 11/11/2022 COLONOSCOPY GENERIC (SCAN ORDER) 10/07/2022 HEPATITIS C ANTIBODY Routine 06/28/2019 9:15 AM CDT Need for hepatitis C screening test from Last 3 Months or Most Recently Relevant to Health Maintenance Results * MUMPS AB IGG (05/24/2024 8:20 AM CDT) MUMPS IGG AB NEGATIVE 05/27/2024 11:35 AM CDT [facility] Comment:A NEGATIVE RESULT BOO GGESTS NON-IMMUNE STATUS 05/24/2024 8:20 AM CDT us Miguelangel Jones DO LABORATORY Final Re sult [facility] [address] [place] [address], [phone] * TSH W/REFLEX (05/24/2024 8:20 AM CDT) TSH 2.253 0.358 - 3.740 uIU/ML 05/24/2024 4:00 PM CDT [facility] 05/24/2024 8:20 AM CDT Miguelangel Jones DO LABORATORY Final Re sult Performing Organization Address City/[facility]/ZIP Co de Phone Number [facility] [address] [place] [address], [place] [phone] * RUBEOLA IGG (05/24/2024 8:20 AM CDT) RUBEOLA AB (MEASLES) POSITIVE 05/27/2024 11:35 AM CDT [facility] Comment:IN THE ABSENCE OF AC ETHAN SYMPTOMS, A POSITIVE RESULT SUGGESTS PAST IMMUNITY. 05/24/2024 8:20 AM CDT Miguelangel Jones DO LABORATORY Final Re sult Performing Organization Address [facility] Co de Phone Number [facility] [address] [place] [address], [place] [phone] * RUBELLA IGG (05/24/2024 8:20 AM CDT) RUBELLA IGG AB POSITIVE 05/27/2024 11:33 AM CDT [facility] Comment:IN THE ABSENCE OF AC ETHAN SYMPTOMS, A POSITIVE RESULT SUGGESTS PAST IMMUNITY. 05/24/2024 8:20 AM CDT Miguelangel Jones DO LABORATORY Final Re sult Performing Organization Address City/[facility] Co de Phone Number [facility] [address] [place] [address], [place] [phone] * (ABNORMAL) COMPREHENSIVE METABOLIC PANEL (05/24/2024 8:20 AM CDT) [facility] SODIUM S/P/B 140 136 - 145 MMOL/L 05/24/2024 4:00 PM CDT -[facility] POTASSIUM S/P/B 5.1 3.5 - 5.1 MMOL/L 05/24/2024 4:00 PM CDT [facility] CHLORIDE S/P/B 105 98 - 107 MMOL/L 05/24/2024 4:00 PM CDT [facility] CO2 31.0 21 - 32 MMOL/L 05/24/2024 4:00 PM T [facility] GLUCOSE 93 70 - 99 MG/DL 05/24/2024 4:00 PM CDT [facility] BUN 14 7 - 18 MG/DL 05/24/2024 4:00 PM CDT [facility] CREATININE S/P/B 1.10(H) 0.55 - 1.02 MG/DL 05/24/2024 4:00 PM T [facility] CALCIUM S/P/B 9.2 8.4 - 10.5 MG/DL 05/24/2024 4:00 PM CDT [facility] BILIRUBIN TOTAL S/P/B 0.7 0.2 - 1.0 MG/DL 05/24/2024 4:00 PM CDT [facility] ALKALINE PHOSPHATASE S/P/B 59 50 - 130 U/L 05/24/2024 4:00 PM CDT [facility] AST 13(L) 15 - 37 U/L 05/24/2024 4:00 PM CDT [facility] ALT 25 14 - 59 U/L 05/24/2024 4:00 PM CDT [facility] TOTAL PROTEIN S/P/B 7.4 6.4 - 8.2 G/DL 05/24/2024 4:00 PM CDT [facility] ALBUMIN S/P/B 4.0 3.4 - 5.0 G/DL 05/24/2024 4:00 PM T [facility] ANION GAP 4.0(L) 5 - 15 MMOL/L 05/24/2024 4:00 PM T [facility] Comment:REFERENCE RANGE NOT ESTABLISHED OSMOLALITY (CALC) 290 MOSM/KG 025 4:00 PM T [facility] Comment:REFERENCE RANGE NOT ESTABLISHED GFR ESTIMATE 57(L) >90 ML/MIN/1. 73 M2 05/24/2024 4:00 PM T [facility] GFR NOTES GFR REFERENCE S: 05/24/2024 4:00 PM T [facility] Comment: THE ESTIMATED GFR IS CALCULATED USING THE 2020 CKD-EPI EQUATION. THE FOLLOWING CATEGORIES FOR GRADING RENAL FUNCTION ARE RECOMMENDED BY THE INTERNATIONAL SOCIETY OF NEPHROLOGY (KDIGO 2012 CLINICAL PRACTICE GUIDELINE). G1,NORMAL OR HIGH: >89 ml/min/1.73 m2 G2,MILDLY DECREASED: 60-89 ml/min/1.73 m2 G3A,MILDLY TO MODERATELY DECREASED: 45-59 ml/min/1.73 m2 G3B,MODERATELY TO SEVERELY DECREASED: 30-44 ml/min/1.73 m2 G4,SEVERELY DECREASED: 15-29 ml/min/1.73 m2 G5,KIDNEY FAILURE: <15 ml/min/1.73 m2 05/24/2024 8:20 AM CDT us Miguelangel Jones DO LABORATORY Final Re sult [facility] [address] [place] [address], [place] [phone] * (ABNORMAL) LIPID PANEL (05/24/2024 8:20 AM CDT) CHOLESTEROL 200(H) <200 MG/DL 05/24/2024 4:00 PM CDT [facility] TRIGLYCERIDES 132 <150 MG/DL 05/24/2024 4:00 PM CDT [facility] HDL 50 >40 MG/DL 05/24/2024 4:00 PM CDT [facility] LDL-C 124(H) <100 MG/DL 05/24/2024 4:00 PM CDT [facility] VLDL CALCULATION 26 5 - 28 MG/DL 05/24/2024 4:00 PM CDT [facility] CHOL/HDL RATIO 4.0 0.0 - 4.0 05/24/2024 4:00 PM CDT [facility] LDL/HDL 2.5(H) 0.41 - 2.13 05/24/2024 4:00 PM CDT [facility] NON HDL CHOLESTEROL 150(H) <140 MG/DL 05/24/2024 4:00 PM CDT [facility] 05/24/2024 8:20 AM CDT us Miguelangel Jones DO LABORATORY Final Re sult [facility] [address] [place] [address], [place] [phone] * (ABNORMAL) CBC W/DIFF AUTOMATED (05/24/2024 8:20 AM CDT) WBC 4.78 4.00 - 10.80 x10'3/uL 05/24/2024 4:21 PM CDT [facility] RBC 4.24 4.10 - 5.40 x10'6/uL 05/24/2024 4:21 PM CDT [facility] HGB 13.0 12.0 - 16.0 G/DL 05/24/2024 4:21 PM CDT [facility] HCT 40.5 36.0 - 47.0 % 05/24/2024 4:21 PM CDT -[facility] MCV 95.5 78.0 - 100.0 FL 05/24/2024 4:21 PM CDT [facility] MCH 30.7 27.0 - 31.0 PG 05/24/2024 4:21 PM CDT [facility] MCHC 32.1(L) 33.0 - 36.0 G/DL 05/24/2024 4:21 PM CDT [facility] RDW 12.2 11.5 - 14.5 % 05/24/2024 4:21 PM CDT [facility] PLT 193 150 - 350 x10'3/uL 05/24/2024 4:21 PM CDT [facility] MPV 13.3(H) 7.4 - 10.4 FL 05/24/2024 4:21 PM CDT [facility] Comment:LARGE PLATELETS PRES ENT. DIFFERENTIAL TYPE AUTOMATED DIFFERENTIAL 05/24/2024 4:21 PM CDT [facility] NEUTROPHILS % 47.3 % 05/24/2024 4:21 PM CDT [facility] LYMPHOCYTES % 37.4 % 05/24/2024 4:21 PM CDT [facility] MONOCYTES % 10.9 % 05/24/2024 4:21 PM CDT [facility] EOSINOPHILS % 3.8 % 05/24/2024 4:21 PM CDT [facility] BASOPHILS % 0.4 % 05/24/2024 4:21 PM CDT [facility] IMMATURE GRANS % 0.2 % 05/24/2024 4:21 PM CDT [facility] ABS. NEUTROPHILS 2.26 1.60 - 8.30 x10'3/uL 05/24/2024 4:21 PM CDT [facility] ABS. LYMPHOCYTES 1.79 0.80 - 4.70 x10'3/uL 05/24/2024 4:21 PM CDT [facility] ABS. MONOCYTES 0.52 0.00 - 1.50 x10'3/uL 05/24/2024 4:21 PM CDT [facility] ABS. EOSINOPHILS 0.18 0.00 - 0.40 x10'3/uL 05/24/2024 4:21 PM CDT [facility] ABS. BASOPHILS 0.02 0.00 - 0.20 x10'3/uL 05/24/2024 4:21 PM CDT [facility] ABS. IMMATURE GRANULOCYTES 0.01 0.00 - 0.03 x10'3/uL 05/24/2024 4:21 PM CDT [facility] 05/24/2024 8:20 AM CDT Miguelangel Jones LABORATORY Final Re sult Performing Organization Address City/[facility]/ZIP Co de Phone Number [facility] [address] [place] [address], [place] [phone] * VITAMIN D, 25 OH (05/24/2024 8:20 AM CDT) Pathologist [facility] VITAMIN D 25 HYDROXY TOTAL S/P/B 39.7 30 - 100 NG/ML 05/24/2024 4:00 PM CDT [facility] Comment: DEFICIENT <20 INSUFFICIENT 20-30 SUFFICIENT 30-100 05/24/2024 8:20 AM CDT Miguelangel Jones LABORATORY Final Re sult [facility] [address] [place] [address], [place] [phone] * MAMMOGRAM GENERIC (11/11/2022) Anatomical Region Laterality Modality Other 11/11/2022 [facility] Scanned SCANNING Final Resu lt * COLONOSCOPY GENERIC (10/07/2022) 10/07/2022 [facility] Scanned SCANNING Final Resu lt * HEPATITIS C ANTIBODY (06/28/2019 9:15 AM CDT) HEPATITIS C AB NON-REACT MEENU NON-REACT MEENU [facility] SIGNAL TO CUTOFF 0.01 <1.00 [facility] Comment: HCV antibody was non-reactive. There is no laboratory evidence of HCV infection. In most cases, no further action is required. However, if recent HCV exposure is suspected, a test for HCV RNA (test code 67786) is suggested. For additional information please refer to http://education.BuzzStream/faq/TXK48t4 (This link is being provided for informational/ educational purposes only.) 06/28/2019 9:15 AM CDT 06/29/2019 6:26 AM CDT Narrative Resulting Agency Comment Performing Organization Information: Site ID: [email or web address] Name: [facility] Address: [id number] [place] [address] [place] [address] Director: Santy Flowers D.O., MPH Miguelangel Jones DO LABORATORY Final Re sult [facility] from Last 3 Months or Most Recently Relevant to Health Maintenance Insurance [email or web address] OPEN ACCESS [facility] Care Teams Emergency Preparedness Coordinator Relationship Specialty Start Date End Date Miguelangel Jones DO [address] [place] [id number] PCP - General FAMILY PRACTICE 02/28/18
--- OUTSIDE RECORDS SUMMARY | 2024-06-14 15:35 | XMS_ITS | Encounter Summary ---
Author Organization [facility] Address [facility] [place] [address] Care Team Providers Care Installation Superintendent Name Role Phone Miguelangel Jones DO Primary Care Provider + Encounter Details Date Type Department Care Team (Late st Contact Info) Description 05/26/2022 HYGIEIA Message Enc [facility] Family & Internal [address] [phone] [facility] Provider appointment Social History Tobacco Use Types Packs/Day Years Used Date Smoking Tobacco: Never Passive Smoke Exposure: Yes Smokeless Tobacco: Never Comments:Both parents smoked , Never Smoked Alcohol Use Standard Drinks/Week Comments Yes 0 (1 standard drink = 0.6 oz pur e alcohol) Rarely PHQ-2 Answer Date Recorded PHQ-2 Score - If the patient scores above 3, please move on to questions 3-9 0 09/02/2021 Comments No Sex and Gender Information Value Date Recorded Sex Assigned at Female 05/24/2024 7:35 AM CDT Legal Sex Female 9:37 PM CDT Gender Identity Female 04/09/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 Sexual Orientation Not on file 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 Not on file documented as of this encounter Plan of Treatment Upcoming Encounters Date Type Department Care Team (Late st Contact Info) Description 07/15/2024 2:00 PM CDT Allied Health/Nurse Visit [facility] Family Internal [address] [phone] Miguelangel Jones DO [address] [place] [address] 09/05/2024 7:20 AM CDT Laboratory Only [facility] Family & Internal Medicine - [place] [address] [place] [address] Miguelangel Jones DO [address] [place] [address] documented as of this encounter Visit Diagnoses Not on filedocumented in this encounter Additional Health Concerns Assessment Noted Time PHQ-9 Depression Total Score: 0 05/29/19 22 8:05 AM CDT documented as of this encounter Care Teams Installation Superintendent Relationship Specialty Start Date End Date Miguelangel Jones DO [address] [place] [id number] PCP - General FAMILY PRACTICE 02/28/18 documented as of this encounter
--- OUTSIDE RECORDS SUMMARY | 2024-06-14 15:35 | XMS_ITS | Referral Summary ---
Author Organization [facility] [address] [facility] Address [address] [place] [address] Care Team Providers Care Animal Killer Name Role Phone Miguelangel Jones Primary Care Provide r Aaron Kong MD Unavailable [phone] Allergies Active Allergy Reactions Criticality Noted Date [...] more affordable when ordered and mailed from [employer] in [place], [place]. 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
== END 2024-06-14 15:22 | disposition home or self-care (01) ==
LOC: ANHIMG 15:33
PROVIDERS: PCP Student in an Organized Health Care Education/Training Program; Visit Provider Student in an Organized Health Care Education/Training Program
DX: Z12.31 Encounter for screening mammogram for malignant neoplasm of breast (principal)
CPT/HCPCS: 77063; 77067

== ENCOUNTER 2024-09-17 13:58 | Outpatient (CLI) | payer OTHER, SELFPAY ==
--- NOTE | ~2024-09-17 | DEXA_ITS ---
Bone Density Report Name: ABDIAZIZ MEIER Age: 63 Sex: Female Ethnicity: White Date of : 1960 Indication: postmenopausal; screening for osteoporosis; height loss; hysterectomy; Referring Provider: MARKOS, MARIBEL Study: Bone densitometry was performed. Exam Date: September 17, 2024 Accession number: [id number] Bone Density: Region BMD T-score Z-score Classification AP Spine(L1-L4) 0.926 -1.1 0.4 Osteopenia Femoral Neck (Left) 0.719 -1.2 0.2 Osteopenia Total Hip (Left) 0.859 -0.7 0.4 Normal Femoral Neck (Right) 0.643 -1.9 -0.5 Osteopenia Total Hip (Right) 0.839 -0.8 0.2 Normal Total Hip Mean 0.849 -0.8 0.3 Normal World Health Organization criteria for BMD impression classify patients as: Normal (T-score at or above -1.0), Osteopenia (T-score between -1.0 and -2.5), or Osteoporosis (T-score at or below -2.5). 10-year Fracture Risk(1): Major Osteoporotic Fracture 9.5% Hip Fracture 1.1% Reported Risk Factors: [place] (), Neck BMD=0.643, BMI=25.2 (1) FRAX(R) Version 3.08. Fracture probability calculated for an untreated patient. Fracture probability may be lower if the patient has received treatment. Clinical Information Provided by Patient: Has used the following medications: HRT (i.e. estrogen/hormone therapy), Vitamin D, Calcium Has the following medical conditions: Hysterectomy Patient maximum height was 72 Menopause Age: 39 No regular weight bearing exercise Does not regularly consume dairy products Drinks caffeinated beverages Onset of menses at age 15 Number of children 0 Impression: The patient has low bone mass, based on the Right Femoral Neck T-score. The patient has an estimated ten-year risk of hip fracture of 1.1% and an estimated ten-year risk of major fracture of 9.5%, based on the WHO FRAX algorithm. Discussion: BONE DENSITY IS LOW AT ONE OR MORE SKELETAL SITES. This patient's lowest T-score is low at one or more skeletal sites. It meets the World Health Organization's (WHO) criteria for ?low bone mass? (T-score between -1.0 and -2.5). The patient's 10-year risk of fracture as calculated by FRAX is less than the threshold where pharmacological therapy is recommended by the National Osteoporosis Foundation (NOF). However, all treatment decisions require clinical judgment and consideration of individual patient factors, including patient preferences, comorbidities, previous drug use, risk factors not captured in the FRAX model (e.g., frailty, falls, vitamin D deficiency, increased bone turnover, interval significant decline in bone density) and possible under or overestimation of fracture risk by FRAX. The patient should follow a healthful lifestyle (good nutrition with adequate calcium and vitamin D, and appropriate weight-bearing exercise). Follow-Up: Consider repeating this study in 2 to 3 years to reassess this patient's status, or sooner if there is some new clinical indication. Reported by: PARVIZ on 09/17/2024 2:45:00 PM. Reviewed, dictated and finalized at location A.
--- OUTSIDE RECORDS SUMMARY | 2024-09-17 14:03 | XMS_ITS | Clinical Summary ---
Author Organization [facility] Address [address] [place] [address] Care Team Providers Care Fisher Trot Line Name Role Phone Miguelangel Jones DO Primary [...] Medications CALCIUM OR Take by mouth daily. 07/17/19 03 Active cranberry 500 MG Cap Take 1 capsule by mouth daily. Active fluticasone propionate 50 MCG/ACT nasal spray U 2 SPRAYS IEN D 03/24/19 Active NON FORMULARY CBD oil prn sleep, [...] total) onto the skin twice a week. 07/13/19 24 Active meloxicam (MOBIC) 15 MG tabletIndicati ons:Lumbar pain TAKE 1 TABLET BY MOUTH EVERY DAY IN THE MORNING 90 tablet 08/27/19 25 Active LORazepam (ATIVAN) 0.5 MG tabletIndicati ons:Anxiety Take one tablet one hour prior to procedure 2 tablet 08/30/19 25 Active meloxicam (MOBIC) 15 MG tabletIndicati ons:Lumbar pain TAKE 1 TABLET BY MOUTH EVERY DAY IN THE MORNING 90 tablet 05/28/19 25 025 Discontinued Active Problems Problem Noted Date [...] when ordered and mailed from [employer] in [place], [place]. Will see patient as needed for [...] Encounters Date Type Department Care Team Description 09/02/2024 Scan [facility] INFO SRVCS Scanned, [facility] EMG (SCAN) 08/29/2024 Telephone [facility] Family & Internal Medicine [address] [address] Miguelangel Jones, DO Medication Request 08/27/2024 Results Follow-Up [facility] Family & Internal Medicine [address] [address] Miguelangel Jones, DO CBC W/DIFF AUTOMATED 08/23/2024 8:20 AM CDT Laboratory Only [address] [address] Miguelangel Jones, DO 08/23/2024 Travel 08/21/2024 Scan [facility] HEALTH INFO SRVCS Scanned, Doc [facility] 08/21/[address] [address] Miguelangel Jones, DO Lab Order 08/06/2024 2:15 PM CDT - 08/06/2024 11:59 PM CDT Hospital Encounter [facility] [place] [address] Jose Beard MD Discharge Disposition: Home or Self Care (Routine Discharge) 08/06/2024 Scan [facility] HEALTH INFO SRVCS Scanned, Doc [facility] 08/06/2024 Travel 07/24/2024 Scan [facility] HEALTH INFO SRVCS Scanned, Doc [facility] 07/15/2024 2:00 PM CDT Allied Health/Nurse Visit [address] [address] Miguelangel Jones, Imm/Inj 07/15/2024 Travel 06/19/2024 Telephone [facility] [address] [address] Miguelangel Jones, DO Results from Last 3 Months Immunizations Immunization Administration Dates Next Due Arexvy Respiratory Syncytial Virus (RSV, adjuvanted) 0.5 mL, PF 03/05/2024 Fluzone 6 Months+ Quad (0.5 mL Prefilled Syringe ) 02/13/2023,04/12/2021 Influenza (Generic) 01/04/2024 Influenza Adult (Generic) 01/15/2022 MMR (MMRII) 06/10/2024 Pneumococcal (Prevnar 20) 07/15/2024 Shingrix 03/05/2024,02/28/2023 Tdap (Historical Only-select from magnify [...] CDT Gender Identity Female 04/09/2021 8:47 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 Sexual Orientation Not on file Occupation Industry [...] A M CDT Height 180.3 cm (5' 11) 05/24/2024 7:38 AM CDT Body Mass Index 25.01 05/24/2024 7:38 AM CDT Plan of Treatment Health Maintenance Due Date Last Done Comments Annual Physical 05/24/2025 05/24/2024, 050 10/2022, 05/28/2021, Additional history exists Mammogram Screening 06/14/2026 06/14/2024, 11/11/2022, 09/28/2021, Additional history exists DTaP, Tdap and Td Vaccines (2 - Td or Tdap) 06/27/2029 06/28/2019 Colorectal Cancer Screening Colonoscopy (10 Years) 10/07/2032 10/07/2022 Hepatitis C Completed 06/28/2019 COVID-19 Vaccine Completed 01/04/2024, , 01/15/2022, Additional history exists RSV Immunization or 60+ Years Completed 03/05/2024 Zoster Vaccines Completed 03/05/2024, 02/28/2023 PHQ-2 (Physician [place]) Completed 05/24/2024 Pneumococcal Vaccine: 50+ Years Completed 07/15/2024 Meningococcal B Vaccine Aged Out No l onger eligible based on patient's age to complete this topic Meningococcal Vaccine Aged Out No steven bisi eligible based on patient's age to complete this topic RSV Immunizations Under 20 Months Aged Out No longer eligible based on patient's age to complete this topic Medical Devices Implanted Type Area Diabetes Territory Manager Device Identifier Shelf Expiration Date Model / Serial / Lot Lifenet Decellularized Dermix 4 X 4cm Implanted:Qty: 1 on 12/24/2021 by Iraj Arguello MD at [facility] Tissue Left: [employer]umb [employer] [facility] Delivery Agent [id number] 05/09/2024 [id number] / [id number] / [id number] Procedures Procedure Name Priority Date/Time Associated Diagnosis Comments EMG GENERIC (SCAN ORDER) 09/02/2024 COLLECTION VENOUS BLOOD VENIPUNCTURE Routine 08/23/2024 8:31 AM CDT Other specified abnormal findings of blood chemistry CBC W/DIFF AUTOMATED Routine 08/23/2024 8:31 AM CDT Other specified abnormal findings of blood chemistry XR SCOLIOSIS MIN 6V Routine 08/06/2024 2 :48 PM CDT Low back pain MAMMOGRAM GENERIC (SCAN ORDER) 06/14/2024 COLONOSCOPY GENERIC (SCAN ORDER) 10/07/2022 HEPATITIS C ANTIBODY Routine 06/28/2019 9:15 AM CDT Need for hepatitis C screening test from Last 3 Months or Most Recently Relevant to Health Maintenance Results * EMG GENERIC (SCAN ORDER) (09/02/2024) 09/02/2024 us [facility] Scanned SCANNING Final Resu lt * (ABNORMAL) CBC W/DIFF AUTOMATED (08/23/2024 8:31 AM CDT) WBC 5.87 4.00 - 10.80 x10'3/uL 08/23/2024 3:49 PM CDT [facility] RBC 4.15 4.10 - 5.40 x10'6/uL 08/23/2024 3:49 PM CDT [facility] HGB 12.9 12.0 - 16.0 G/DL 08/23/2024 3:49 PM CDT [facility] HCT 40.1 36.0 - 47.0 % 08/23/2024 3:49 PM CDT [facility] MCV 96.6 78.0 - 100.0 FL 08/23/2024 3:49 PM CDT [facility] MCH 31.1(H) 27.0 - 31.0 PG 08/23/2024 3:49 PM CDT [facility] MCHC 32.2(L) 33.0 - 36.0 G/DL 08/23/2024 3:49 PM CDT [facility] RDW 12.2 11.5 - 14.5 % 08/23/2024 3:49 PM CDT [facility] PLT 157 150 - 350 x10'3/uL 08/23/2024 3:49 PM CDT [facility] MPV 13.5(H) 7.4 - 10.4 FL 08/23/2024 3:49 PM CDT [facility] Comment:LARGE PLATELETS PRES ENT. DIFFERENTIAL TYPE AUTOMATED DIFFERENTIAL 08/23/2024 3:49 PM CDT [facility] NEUTROPHILS % 54.9 % 08/23/2024 3:49 PM CDT -[facility] LYMPHOCYTES % 31.9 % 08/23/2024 3:49 PM CDT -[facility] MONOCYTES % 8.0 % 08/23/2024 3:49 PM CDT -[facility] EOSINOPHILS % 4.9 % 08/23/2024 3:49 PM CDT -[facility] BASOPHILS % 0.3 % 08/23/2024 3:49 PM CDT -[facility] IMMATURE GRANS % 0.0 % 08/23/2024 3:49 PM CDT -[facility] ABS. NEUTROPHILS 3.22 1.60 - 8.30 x10'3/uL 08/23/2024 3:49 PM CDT -[facility] ABS. LYMPHOCYTES 1.87 0.80 - 4.70 x10'3/uL 08/23/2024 3:49 PM CDT -[facility] ABS. MONOCYTES 0.47 0.00 - 1.50 x10'3/uL 08/23/2024 3:49 PM CDT -[facility] ABS. EOSINOPHILS 0.29 0.00 - 0.40 x10'3/uL 08/23/2024 3:49 PM CDT -[facility] ABS. BASOPHILS 0.02 0.00 - 0.20 x10'3/uL 08/23/2024 3:49 PM CDT -[facility] ABS. IMMATURE GRANULOCYTES 0.00 0.00 - 0.03 x10'3/uL 08/23/2024 3:49 PM CDT [facility] 08/23/2024 8:31 AM CDT us Miguelangel Jones DO LABORATORY Final Re sult -[facility] [address] [place] [address], * XR SCOLIOSIS MIN 6V (08/06/2024 2:48 PM CDT) Anatomical Region Laterality Modality Spine Radiographic Ml ging 08/14/2024 2:21 PM CDT Impressions 08/14/2024 2:24 PM CDT IMPRESSION: 20 degrees of dextroscoliosis from L1 through L4. Bilateral sacroiliac osteoarthritis. Moderate degenerative disc disease and facet arthropathy. No malalignment and no significant change with flexion or extension. Referred By: Interpreted By: Augustine Daugherty MD, 08/14/2024 2:21 PM Narrative 08/14/2024 2:24 PM CDT [place] [id number] EXAMINATION: Scoliosis radiograph of the spine EXAM DATE: 08/06/2024 2:21 PM REASON FOR EXAM: Lower back pain. COMPARISON: None TECHNIQUE: 6 views including flexion and extension lateral views. FINDINGS: Frontal view obscured by arms overlying the thorax. 12 thoracic type and 5 lumbar-type vertebrae are identified. 20 degrees of dextroscoliosis from L1 through L4. Bilateral sacroiliac osteoarthritis. Moderate degenerative disc disease and facet arthropathy. No malalignment and no significant change with flexion or extension. Procedure Note Augustine Daugherty MD - 08/14/2024 [place] [id number] EXAMINATION: Scoliosis radiograph of the spine EXAM DATE: 08/06/2024 2:21 PM REASON FOR EXAM: Lower back pain. COMPARISON: None TECHNIQUE: 6 views including flexion and extension lateral views. FINDINGS: Frontal view obscured by arms overlying the thorax. 12 thoracic type and 5 lumbar-type vertebrae are identified. 20 degreesof dextroscoliosis from L1 through L4. Bilateral sacroiliac osteoarthritis. Moderate degenerative disc disease and facet arthropathy. No malalignmentand no significant change with flexion or extension. IMPRESSION: 20 degrees of dextroscoliosis from L1 through L4. Bilateral sacroiliac osteoarthritis. Moderate degenerative disc diseaseand facet arthropathy. No malalignment and no significant change withflexion or extension. Referred By: Interpreted By: Augustine Daugherty MD, 08/14/2024 2:21 PM Jose Beard MD GENERAL IMAGING Final Result * MAMMOGRAM GENERIC (SCAN ORDER) (06/14/2024) Anatomical Region Laterality Modality Other 06/14/2024 [facility] Scanned SCANNING Final Resu lt * COLONOSCOPY GENERIC (10/07/2022) 10/07/2022 [facility] Scanned SCANNING Final Resu lt * HEPATITIS C ANTIBODY (06/28/2019 9:15 AM CDT) HEPATITIS C AB NON-REACT MEENU NON-REACT MEENU [facility] SIGNAL TO CUTOFF 0.01 <1.00 [facility] Comment: HCV antibody was non-reactive. There is no laboratory evidence of HCV infection. In most cases, no further action is required. However, if recent HCV exposure is suspected, a test for HCV RNA (test code 12805) is suggested. For additional information please refer to http://education.Plugaround.Handseeing Information/faq/RWY09i2 (This link is being provided for informational/ educational purposes only.) 06/28/2019 9:15 AM CDT 06/29/2019 6:26 AM CDT Narrative Resulting Agency Comment Performing Organization Information: Site ID: [place] Name: [facility] Address: [address] [address] Director: Santy Flowers D.O., MPH Miguelangel Jones DO LABORATORY Final Re sult [facility] from Last 3 Months or Most Recently Relevant to Health Maintenance Insurance Drill Map OPEN ACCESS [facility] Care Teams Fisher Trot Line Relationship Specialty Start Date End Date Miguelangel Jones DO [facility] [place], [place] [id number] PCP - General FAMILY PRACTICE 02/28/18
--- OUTSIDE RECORDS SUMMARY | 2024-09-17 14:03 | XMS_ITS | Encounter Summary ---
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 Sexual Orientation Not on file 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
--- OUTSIDE RECORDS SUMMARY | 2024-09-17 14:03 | XMS_ITS | Encounter Summary ---
Author Organization [facility] Address [facility] [place] [address] Care Team Providers Care Magnetizer Name Role Phone Miguelangel Jones DO Primary Care Provider + Encounter Details Date Type Department Care Team (Late st Contact Info) Description 11/18/2022 MyChart Message Enc [facility] Family & Internal Medicine [facility] [address] [place] [address] Miguelangel Jones DO [address] [place] [address] Mammogram Results Social History Tobacco Use [...] CDT Gender Identity Female 04/09/2021 8:47 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
--- OUTSIDE RECORDS SUMMARY | 2024-09-17 14:03 | XMS_ITS | Clinical Summary ---
Author Organization [facility] Address [address] [place] [phone] Phone Care Team Providers Care Protective Services Case Worker Name Role Phone Nicholasjosé miguelMiguelangel tobias Phong MCINTOSH Primary Care Provider + Social History Tobacco Use Types Packs/Day Years Used Date Smoking Tobacco: Never Assessed Comments Unknown Sex and Gender Information Value Date Recorded Sex Assigned at Not on file Legal Sex Female 1:06 PM CDT Gender Identity Not on file Sexual Orientation Not on file Plan of Treatment Upcoming Encounters Date Type Department Care Team (Late st Contact Info) Description 09/26/2024 2:30 PM CDT Office Visit [facility] [address] [address] Gilmer Krause MD [address] [place] [id number] Health Maintenance Due Date Last Done Comments Mammogram 1962 Pap Smear 11/07/1983 Cervical Cancer Screening (CCS) 1992 HPV/Cotest 1992 Cologuard 11/07/2007 Colonoscopy 11/07/2007 Colorectal Cancer Screening 11/07/2007 Immunochemical Fecal Occult Blood 11/07/2007 Influenza Immunization (#1) 2024 11/0 08/2023, 02/13/2023, 01/15/2022, Additional history exists DTaP/Tdap/Td Immunization Discontinued 06/28/2019 Hepatitis C Virus (HCV) Screening Completed 06/28/2019 TdaP Immunization Completed 06/28/2019 SARS-COV-2 Immunization Completed 01/04/20 24, 02/12/2023, 01/15/2022, Additional history exists Respiratory Syncytial Virus (RSV) Immunization (Adult) Completed 03/05/2024 Zoster Immunization Completed 03/05/2024, Pneumococcal Immunization (50+ years) Completed 07/15/2024 Pneumococcal Immunization Combined Discontinued 07/15/2024 Hepatitis B Immunization Aged Out No longer eligible based on patient's age to complete this topic Human Papillomavirus (HPV) Immunization Aged Out No longer eligible based on patient's age to complete this topic Meningococcal Immunization (ACWY) Aged Out No longer eligible based on patient's age to complete this topic Rotavirus Immunization Aged Out No lo nger eligible based on patient's age to complete this topic Insurance Care Teams Protective Services Case Worker Relationship Specialty Start Date End Date Miguelangel Jones DO [address] [place] [phone] PCP - General Family Medicine 09/05/24
--- OUTSIDE RECORDS SUMMARY | 2024-09-17 14:03 | XMS_ITS | Referral Summary ---
Author Organization [facility] [address] [facility] Address [address] [place] [address] Care Team Providers Care Body Component Engineer Name Role Phone Miguelangel Jones Primary Care Provide r Aaron Kong MD Unavailable [phone] Encounters Date Type Department Care Team Description 07/25/2024 Telephone [facility] Obstetrical Gynecology [facility] [address] [place] [address] Cornelia Miller MD from Last 3 Months Allergies Active Allergy Reactions Criticality Noted Date Comments Amoxicillin Other (See comments) Low Ciprofloxacin Joint pain Low Hydrocodone Headache,Nausea And Vomiting,Other (See comments) Medium 12/30/2021 Constipation Levofloxacin Joint pain Low Sulfa (Sulfonamide Antibiotics) Medications meloxicam (MOBIC) 15 mg tablet Take 1 tablet (15 mg total) by mouth daily 2 Active cetirizine 10 mg capsule daily Active glucosamine-ch ondroitin (glucosamine-c hondroitin) 500-400 mg capsule Take 3 capsules by mouth daily Active magnesium oxide (MAG-OX) 250 mg (150.8 mg elemental) tablet Take 2 tablets (500 mg total) by mouth daily Active cholecalcifero l (VITAMIN D-3) 2000 unit tablet Take 2 tablets (4,000 Units total) by mouth daily Active CALCIUM ORAL Take 1,200 mg by mouth daily 3 Active UNABLE TO FIND Med Name: hemp oil complex Active cranberry conc-ascorbic acid 4,200-20 mg capsule Take 2 capsules by mouth daily Active ginkgo biloba 40 mg tablet Take 120 mg by mouth Active ascorbic acid (VITAMIN C) 100 mg tablet Take 1 tablet (100 mg total) by mouth daily Active diphenoxylate- atropine (LOMOTIL) 2.5-0.025 mg per tablet 4 (four) times a day 8 Active fluticasone propionate (FLONASE) 50 mcg/actuation nasal spray U 2 SPRAYS IEN D 0 Active estradioL (VIVELLE-DOT) 0.05 mg/[address] 1 PATCH ON THE SKIN 2 TIMES A WEEK. 8 patch 2 5 Active estradioL (VIVELLE-DOT) 0.05 mg/[address] 1 PATCH ON THE SKIN 2 TIMES A WEEK. 8 patch 5 025 Discontinued Active Problems Problem Noted [...] more affordable when ordered and mailed from [employer] in [place], [place]. 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
--- OUTSIDE RECORDS SUMMARY | 2024-09-17 14:03 | XMS_ITS | Encounter Summary ---
Author Organization [facility] Care Team Providers Care Addiction Counselor Name Role Phone Mignon Alexander MD Primary Care Provider Miguelangel Jones DO Primary Care Provide r Isaias MCLAUGHLIN MD, Noel Garrido Unavailable Aaron Kong MD Unavailable [phone] Encounter Details Date Type Department Care Team (Latest Contact Info) Description 02/23/2016 Orders Only [facility]INCONV Provider, MD Win [address] [place] [id number] Social History Tobacco Use Types Packs/Day Years Used Date Smoking Tobacco: Never Assessed Comments Unknown Sex and Gender Information Value Date Recorded Sex Assigned at Not on file Legal Sex Female 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 Historical Provider [facility] SMITHA CORCORAN Final Result documented in this encounter Visit Diagnoses Not on filedocumented in this encounter Care Teams Addiction Counselor Relationship Specialty Start Date End Date Mignon Alexander MD PCP - General 02/06/17 06/07/21 Miguelangel Jones DO [facility] [place] [place] [place] [address] PCP - General Family Medicine 06/08/21 Noel Esparza III, MD [address] [place] [address] Consulting Physician Rheumatology 06/08/21 06/09/21 Aaron Kong MD [address] [place] [address] Consulting Physician Rheumatology 06/10/21 documented as of this encounter
--- OUTSIDE RECORDS SUMMARY | 2024-09-17 14:03 | XMS_ITS | Clinical Summary ---
Author Organization [facility] [address] [facility] Address [address] [place] [address] Care Team Providers Care Swimming Professor Name Role Phone Miguelangel Jones Primary Care Provide r Aaron Kong MD Unavailable [phone] Allergies Active Allergy Reactions Criticality Noted Date [...] more affordable when ordered and mailed from [employer] in [place], [place]. 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 SUPERVISOR Gender Identity Not on file Sexual Orientation [...] Screening 1980 Regular Well Visit/Exam 18-64 1980 Covid-19 Vaccine ( season) 2023 02/23/2021, 05/08/2020, 04/16/2020 Influenza Vaccine (#1) 2024 , 02/13/2023, 01/15/2022, Additional history exists DTaP/Tdap/Td Vaccine (2 - Td or Tdap) 06/27/2029 06/28/2019 Zoster Vaccine Completed 03/05/2024, 02/28/2023 Pneumococcal vaccine <65 Aged Out No longer eligible based on patient's age to complete this topic Insurance [facility] PENDING S[facility] TO [facility] [id number] Care Teams Swimming Professor Relationship Specialty Start Date End Date Miguelangel Jones DO [address] [place], [place] [phone] PCP - General Family Medicine 06/08/21 Aaron Kong MD [address] [place] [address] Consulting Physician Rheumatology 06/10/21
== END 2024-09-17 13:59 | disposition home or self-care (01) ==
LOC: ANHIMG 13:59
PROVIDERS: PCP Student in an Organized Health Care Education/Training Program; Visit Provider Student in an Organized Health Care Education/Training Program
DX: Z00.00 Encounter for general adult medical examination without abnormal findings (principal); Z78.0 Asymptomatic menopausal state; M85.88 Other specified disorders of bone density and structure, other site; M85.852 Other specified disorders of bone density and structure, left thigh; M85.851 Other specified disorders of bone density and structure, right thigh
CPT/HCPCS: 77080